=== PATIENT | female | born 1975 | race Caucasian/White ===

== ENCOUNTER 2019-09-20 17:35 | Emergency (ER) | payer SELFPAY ==
[~2019-09-20] VITALS: Ht 160 cm; Wt 64.9 kg
[2019-09-20 18:08] VITALS: Ht 160 cm; Wt 64.9 kg
[2019-09-20 21:56] LABS: BASOPHIL % 0.4 % (0-2); PLATELET COUNT 282 x10^3mcL (130-400)
[2019-09-20 21:59] LABS: RED CELL DISTRIBUTION WIDTH 18.8 % (11.5-14.5)
[2019-09-20 22:05] LABS: CALCIUM 9.2 mg/dL (8.5-10.1); CHLORIDE SERUM 103 mmol/L (98-107); CREATININE SERUM 0.7 mg/dL (0.6-1.0); GFR1 > 60 mL/min; GLUCOSE SERUM 104 mg/dL (74-106); POTASSIUM SERUM 3.7 mmol/L (3.5-5.1); SODIUM SERUM 138 mmol/L (136-145)
[2019-09-20 22:09] LABS: ALBUMIN 3.8 g/dL (3.4-5.0); ALKALINE PHOSPHATASE 100 U/L (46-116); ALT/SGPT 20 U/L (14-59); AST/SGOT 12 U/L (15-37); BILIRUBIN TOTAL 0.25 mg/dL (0.20-1.00); LIPASE 116 IU/L (73-393)
[2019-09-20 22:10] LABS: TOTAL PROTEIN, SERUM 8.4 g/dL (6.4-8.2)
[2019-09-21 01:08] VITALS: BP 158/79
== END 2019-09-21 01:08 | disposition home or self-care (01) ==
LOC: ED 17:35
PROVIDERS: Emergency Medicine
DX: N39.0 Urinary tract infection, site not specified (principal)
CPT/HCPCS: 36415; J1885

== ENCOUNTER 2019-09-24 09:10 | Emergency (ER) | payer MEDICAID ==
[~2019-09-24] VITALS: Ht 149.9 cm; Wt 65.5 kg
[2019-09-24 09:23] VITALS: Ht 149.9 cm; Wt 65.5 kg
[2019-09-24 11:02] LABS: CALCIUM 9.5 mg/dL (8.5-10.1); CARBON DIOXIDE 28.7 mmol/L (21-32); CHLORIDE SERUM 103 mmol/L (98-107); CREATININE SERUM 0.7 mg/dL (0.6-1.0); GFR1 > 60 mL/min; GLUCOSE SERUM 102 mg/dL (74-106); POTASSIUM SERUM 4.8 mmol/L (3.5-5.1); SODIUM SERUM 139 mmol/L (136-145)
[2019-09-24 11:06] LABS: ALBUMIN 4.3 g/dL (3.4-5.0); ALKALINE PHOSPHATASE 103 U/L (46-116); ALT/SGPT 26 U/L (14-59); AST/SGOT 33 U/L (15-37); BILIRUBIN TOTAL 0.35 mg/dL (0.20-1.00); LIPASE 99 IU/L (73-393)
[2019-09-24 11:07] LABS: TOTAL PROTEIN, SERUM 8.5 g/dL (6.4-8.2)
[2019-09-24 11:20] LABS: microscopic required? YES; urine erythrocyte NEGATIVE (NEGATIVE)
[2019-09-24 12:26] LABS: BASOPHIL % 0.4 % (0-2); PLATELET COUNT 246 x10^3mcL (130-400)
[2019-09-24 12:33] LABS: RED CELL DISTRIBUTION WIDTH 18.4 % (11.5-14.5)
[2019-09-24 13:22] VITALS: BP 128/68
== END 2019-09-24 14:12 | disposition home or self-care (01) ==
LOC: ED 09:10
PROVIDERS: Specialist
DX: N39.0 Urinary tract infection, site not specified (principal)
CPT/HCPCS: J0696; J1885; J2270; J2405; J7030; J7060